=== PATIENT | female | born 1980 | race Caucasian/White ===

== ENCOUNTER 2021-09-24 17:06 | Emergency (ER) | payer BC ==
[2021-09-24 17:17] VITALS: BP 121/68; PULSE 63; TEMP 98.1; BMI 21.9
[2021-09-24] MEDS ORDERED: MECLIZINE HCL 25 MG TABLET (FP) PO ONE (17:44)
[2021-09-24] MEDS ORDERED: KETOROLAC TROMETHAMINE 30 MG/1 ML VIAL IVPUSH ONE (17:44)
[2021-09-24] MEDS ORDERED: MECLIZINE HCL 25 MG TABLET (FP) ONE (18:14)
[2021-09-24] MEDS ORDERED: KETOROLAC TROMETHAMINE 30 MG/1 ML VIAL ONE (18:14)
[2021-09-24 18:34] LABS: BASO % 0.4 % (0-2.0); EOS % 2.6 % (0-4.5); HEMATOCRIT 36.8 % (32.4-45.2); HEMOGLOBIN 12.6 GM/dL (10.7-15.3); LYMPH % 25.7 % (8-40); MCH 30.4 pg (25.7-33.7); MCHC 34.1 g/dl (32.0-36.0); MEAN CELL VOLUME 89.2 fl (80-96); MEAN PLT VOLUME 8.3 fl (7.5-11.1); MONO % 5.9 % (3.8-10.2); NEUT % 65.4 % (42.8-82.8); PLATELET COUNT 257 10^3/uL (134-434); RBC 4.13 M/mm3 (3.60-5.2); RDW 13.3 % (11.6-15.6); WHITE BLOOD COUNT 7.4 K/mm3 (4.0-10.0)
[2021-09-24 19:02] LABS: CALCIUM 8.8 mg/dL (8.5-10.1)
[2021-09-24 19:03] LABS: BLOOD UREA NITROGEN 14.8 mg/dL (7-18); MAGNESIUM 2.4 mg/dL (1.8-2.4)
[2021-09-24 19:06] LABS: CREATININE 0.7 mg/dL (0.55-1.3)
[2021-09-24 19:07] LABS: BILIRUBIN,TOTAL 0.3 mg/dL (0.2-1); TOT PROT 7.4 g/dl (6.4-8.2)
== END 2021-09-24 20:24 | disposition home or self-care (01) ==
LOC: JER 17:06
PROC: 3E0333Z Introduction of Anti-inflammatory into Peripheral Vein, Percutaneous Approach (ICD-10-PCS; principal; 2021-09-24)
DX: R42 Dizziness and giddiness (principal)
CPT/HCPCS: 36415; 70450-TC; 80053; 83735; 85025; 93005; 93010; 99285-25

== ENCOUNTER 2021-11-29 07:24 | Emergency (ER) | payer BC ==
[2021-11-29 07:29] VITALS: BP 110/67; PULSE 79; TEMP 97; BMI 21.9
== END 2021-11-29 09:20 | disposition home or self-care (01) ==
LOC: JER 07:24
DX: J20.9 Acute bronchitis, unspecified (principal)
CPT/HCPCS: 0241U-QW; 99283-25

== ENCOUNTER 2022-05-22 11:05 | Emergency (ER) | payer BC ==
[2022-05-22 11:19] VITALS: BP 109/63; PULSE 77; RESP 18; TEMP 98.7; BMI 21.9
[2022-05-22] MEDS ORDERED: IBUPROFEN 600 MG TABLET (FP) PO ONE ×2 (11:47→12:11)
[2022-05-22 12:40] LABS: URINE APPEARANCE CLEAR; URINE BILIRUBIN NEGATIVE (NEGATIVE); URINE COLOR YELLOW; URINE GLUCOSE (UA) NEGATIVE (NEGATIVE); URINE KETONE NEGATIVE (NEGATIVE); URINE LEUK ESTERASE NEGATIVE (NEGATIVE); URINE NITRITE NEGATIVE (NEGATIVE); URINE PROTEIN NEGATIVE (NEGATIVE); URINE UROBILINOGEN 0.2 mg/dL (0.2-1.0)
[2022-05-22 12:43] LABS: HCG,QUALITATIVE URINE Negative
== END 2022-05-22 13:00 | disposition home or self-care (01) ==
LOC: JER 11:05
DX: M54.50 Low back pain, unspecified (principal)
CPT/HCPCS: 81003; 84703; 87086; 99283-25